=== PATIENT | female | born 1995 | race Hispanic/Latino ===

== ENCOUNTER 2024-02-14 05:57 | Emergency (ER) | payer BC ==
[2024-02-14] MEDS ORDERED: ONDANSETRON 4 MG/2 ML VIAL ONE (06:27)
[2024-02-14 06:31] LABS: Absolute Basophils 0.1 K/uL (0-0.5); Absolute Lymphocytes (CBC) 1.3 K/uL (0.7-4.9); Absolute Monocytes 0.6 K/uL (0.1-1.3); Absolute Neutrophil 10.6 K/uL (1.8-8.0); Basophils % 0.5 % (0-1.3); Eosinophils % 0.3 % (0-4.4); Hematocrit 39.4 % (36.0-45.0); Hemoglobin 12.9 g/dL (12.0-15.0); Lymphocytes % 10.2 % (15.3-44.8); MCH 26.8 pg (27.0-35.0); MCHC 32.7 g/dL (32.0-36.0); MCV 82.1 fL (80-100); MPV 8.5 fL (7.6-11.3); Monocytes % 4.5 % (3.3-12.3); Neutrophils % 84.5 % (41.7-73.7); Platelets 387 thou/uL (152-406); RBC Red Blood Cell Count 4.81 M/uL (3.86-4.86); Red Cell Distribution Width 14.2 % (12.1-15.2)
[2024-02-14 06:47] LABS: Albumin 3.6 g/dL (3.4-5.0); Albumin/Globulin Ratio 0.9 (1.1-1.8); Anion Gap 12.1 mEq/L (5.0-15.0); Bilirubin Total 0.5 mg/dL (0.2-1.0); Potassium 3.1 mEq/L (3.5-5.1); Protein, Total 7.6 g/dL (6.4-8.2)
[2024-02-14] MEDS ORDERED: NA CHLORIDE 0.9% 1,000 ML ONE (07:54)
--- NOTE | 2024-02-14 08:40 | EDPHYS ---
Physician Documentation [facility] Name: Brea Daugherty Age: 29 yrs Sex: Female : 1995 Arrival Date: 02/14/2024 Time: 05:57 Bed 8 Private MD: ED Physician Domingo Tellez HPI: 02/13 06:08 This 29 yrs old Female presents to ER via Unassigned with complaints of ms3 Nausea, Vomiting, Diarrhea. 06:08 29-year-old female with no past medical history presents to the emergency department ms3 for nausea vomiting and diarrhea that began at 2 AM. Patient's notes she has had fatigue since Wednesday. Patient denies any pain. She denies any alleviating or inciting factors.. 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 - Infectious Disease History:: Denies. - Social history:: Smoking status: Patient denies any tobacco usage or history of. ROS: 06:08 Constitutional: Negative for fever, and chills. Cardiovascular: Negative for chest ms3 pain, and palpitations. Respiratory: Negative for shortness of breath, cough, wheezing, and pleuritic chest pain, 06:08 MS/Extremity: Negative for injury and deformity, Skin: Negative for injury, rash, and discoloration, 06:08 Abdomen/GI: Positive for nausea, vomiting, and diarrhea, Negative for abdominal pain, Exam: 06:08 Constitutional: This is a well developed, well nourished patient who is awake, alert, ms3 and in no acute distress. Chest/axilla: Normal chest wall appearance and motion. Nontender with no deformity. Cardiovascular: Regular rate and rhythm with a normal S1 and S2. No gallops, murmurs, or rubs. Normal PMI, no JVD. No pulse deficits. Respiratory: Lungs have equal breath sounds bilaterally, clear to auscultation and percussion. No rales, rhonchi or wheezes noted. No increased work of breathing, no retractions or nasal flaring. Abdomen/GI: Soft, non-tender, with normal bowel sounds. No distension or tympany. No guarding or rebound. No evidence of tenderness throughout. Skin: Warm, dry with normal turgor. Normal color with no rashes, no lesions, and no evidence of cellulitis. MS/ Extremity: Pulses equal, no cyanosis. Neurovascular intact. Full, normal range of motion. Vital Signs: 06:08 BP 135 / 95; Pulse 77; Resp 15; Temp 98; Pulse Ox 97% ; Weight 58.06 kg; Height 5 ft. 2 vc1 in. ; Pain 10/10; 06:34 BP 139 / 93; Pulse 75; Resp 16; Pulse Ox 97% ; dd2 07:19 BP 153 / 99; Pulse 76; Resp 18; Pulse Ox 98% on R/A; ph 08:30 BP 137 / 89; Pulse 72; Resp 18; Temp 98; Pulse Ox 98% on R/A; ph 06:08 Body Mass Index 23.41 (58.06 kg, 157.48 cm) vc1 06:08 Pain Scale: Adult vc1 [place] Coma Score: 06:34 Eye Response: spontaneous(4). Motor Response: obeys commands(6). Verbal Response: dd2 oriented(5). Total: 15. MDM: 06:08 Medical Screening Exam initiated ms3 06:08 Differential diagnosis: Anemia Electrolyte abnormality versus acute kidney injury ms3 versus gastroenteritis. 06:58 Transition of care: After a detail discussion of the patient's case, care is ms3 transferred to Domingo Tellez MD. 08:30 Data reviewed: vital signs, nurses notes, lab test result(s). Consideration of rt Admission/Observation Escalation of care including admission/observation considered. Symptoms significant improving, lab work benign, leukocytosis likely secondary to demargination, patient has no focal areas of abdominal tenderness, stable for outpatient care with return precautions. Patient is p.o. tolerant prior to discharge.. I considered the following discharge prescriptions or medication management in the emergency department Medications were administered in the Emergency Department. See MAR. Test considered but Not performed: CT: Benign abdominal examination, CT scan indicated. Counseling: I had a detailed discussion with the patient and/or guardian regarding the historical points, exam findings, and any diagnostic results supporting the discharge/admit diagnosis, lab results, the need for outpatient follow up, to return to the emergency department if symptoms worsen or persist or if there are any questions or concerns that arise at home. Response to treatment: the patient's symptoms have markedly improved after treatment. 02/13 06:08 Order name: CBC with Diff; Complete Time: 07: ms3 02/13 06:08 Order name: CMP; Complete Time: 07: ms3 02/13 06:08 Order name: IV Saline Lock; Complete Time: ms3 02/13 06:08 Order name: Labs collected and sent; Complete Time: : ms3 Administered Medications: 06:29 Drug: Ondansetron IVP 4 mg IVP once; over 2 minutes Route: IVP; Site: right antecubital;dd2 06:44 Follow up: Response: No adverse reaction dd2 08:00 Drug: NS 0.9% IV 1000 ml IV at 1000 ml once; to be given as a bolus over 30 minutes ph Route: IV; Rate: 1000 ml; Site: right antecubital; 08:49 Follow up: Response: No adverse reaction; IV Status: Completed infusion; IV Intake: ph 1000ml Disposition Summary: 02/14/24 08:39 Discharge Ordered Notes: Location: Home rt Condition: Stable rt Diagnosis - Nausea with vomiting, unspecified rt - Diarrhea, unspecified rt Followup: ms3 - With: Ab Escalante DO - When: 2 - 3 days - Reason: Recheck today's complaints Discharge Instructions: - Discharge Summary Sheet ms3 - Food Choices to Help Relieve Diarrhea, Adult ms3 - Diarrhea, Adult ms3 - Nausea and Vomiting, Adult ms3 Forms: - Work release form hb - Medication Reconciliation Form rt - Antibiotic Education rt - Prescription Opioid Use rt - Patient Portal Instructions rt - Leadership Thank You Letter rt Prescriptions: - ondansetron 4 mg Oral Tablet,disintegrating - take 1 tablet ORAL route every 8 hours; 15 tablet; Refills: 0, Product ms3 Selection Permitted Signatures: Dispatcher [employer] Melinda Crain RN RN De Rouse DO DO ms3 Kala Art RN RN vc1 Domingo Tellez MD MD rt CARLOS FLORES RN RN dd2 Corrections: (The following items were deleted from the chart) 06:12 06:11 Allergies: Aspirin; vc1 vc1 06:12 06:11 PMHx: None; vc1 vc1
--- NOTE | 2024-02-14 08:40 | ER ---
Nurse's Notes [facility] Name: Brea Daugherty Age: 29 yrs Sex: Female : 1995 Arrival Date: 02/14/2024 Time: 05:57 Bed 8 Private MD: Diagnosis: Nausea with vomiting, unspecified;Diarrhea, unspecified Presentation: 02/13 06:08 Chief complaint: Patient states: I have been tired the last few days all I do is sleep. vc1 Today I started vomiting blood and diarrhea. Coronavirus screen: Client denies travel out of the [place] in the last 14 days. At this time, the client does not indicate any symptoms associated with coronavirus-19. Ebola Screen: Patient negative for fever greater than or equal to 101.5 degrees Fahrenheit, and additional compatible Ebola Virus Disease symptoms Patient denies exposure to infectious person. Patient denies travel to an Ebola-affected area in the 21 days before illness onset. No symptoms or risks identified at this time. Initial Sepsis Screen: Does the patient meet any 2 criteria? No. Patient's initial sepsis screen is negative. Does the patient have a suspected source of infection? No. Patient's initial sepsis screen is negative. Risk Assessment: Do you want to hurt yourself or someone else? Patient reports no desire to harm self or others. Onset of symptoms was February 14, 2024. 06:08 Method Of Arrival: Ambulatory vc1 06:08 Acuity: NUBIA 3 vc1 Triage Assessment: 06:12 General: Appears in no apparent distress. uncomfortable, ill, slender, well groomed, vc1 well developed, well nourished, Behavior is calm, cooperative, appropriate for age. Pain: Complains of pain in abdomen. EENT: No deficits noted. No signs and/or symptoms were reported regarding the EENT system. Neuro: Level of Consciousness is awake, alert, obeys commands, Oriented to person, place, time, situation, Appropriate for age. Cardiovascular: Capillary refill < 3 seconds Patient's skin is warm and dry. Respiratory:. 06:14 Respiratory: Reports trouble catching breath Onset: The symptoms/episode began/occurred vc1 at an unknown time. the patient reports symptoms have resolved. GI: Reports diarrhea, nausea, vomiting. : No deficits noted. No signs and/or symptoms were reported regarding the genitourinary system. Derm: Skin is intact, is healthy with good turgor, Skin is dry, Skin is normal, Skin temperature is warm. Musculoskeletal: Circulation, motion, and sensation intact. Range of motion: intact in all extremities. 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 - Infectious Disease History:: Denies. - Social history:: Smoking status: Patient denies any tobacco usage or history of. Screenin:12 [facility] ED Fall Risk Assessment (Adult) History of falling in the last 3 months, vc1 including since admission No falls in past 3 months (0 pts) Confusion or Disorientation No (0 pts) Intoxicated or Sedated No (0 pts) Impaired Gait No (0 pts) Mobility Assist Device Used No (0 pt) Altered Elimination No (0 pt) Score/Fall Risk Level 0 - 2 = Low Risk Oriented to surroundings, Maintained a safe environment, Educated pt \T\ family on fall prevention, incl call for assistance when getting out of bed. Abuse screen: Denies threats or abuse. Nutritional screening: No deficits noted. Tuberculosis screening: No symptoms or risk factors identified. Assessment: 06:34 Reassessment: SEE TRIAGE FOR FULL ASSESSENT. dd2 07:19 Reassessment: Patient appears in no apparent distress at this time. Patient and/or ph family updated on plan of care and expected duration. Pain level reassessed. Patient is alert, oriented x 3, equal unlabored respirations, skin warm/dry/pink. 08:48 Reassessment: Patient appears in no apparent distress at this time. Patient and/or ph family updated on plan of care and expected duration. Pain level reassessed. Patient is alert, oriented x 3, equal unlabored respirations, skin warm/dry/pink. Vital Signs: 06:08 BP 135 / 95; Pulse 77; Resp 15; Temp 98; Pulse Ox 97% ; Weight 58.06 kg; Height 5 ft. 2 vc1 in. ; Pain 10/10; 06:34 BP 139 / 93; Pulse 75; Resp 16; Pulse Ox 97% ; dd2 07:19 BP 153 / 99; Pulse 76; Resp 18; Pulse Ox 98% on R/A; ph 08:30 BP 137 / 89; Pulse 72; Resp 18; Temp 98; Pulse Ox 98% on R/A; ph 06:08 Body Mass Index 23.41 (58.06 kg, 157.48 cm) vc1 06:08 Pain Scale: Adult vc1 [place] Coma Score: 06:34 Eye Response: spontaneous(4). Motor Response: obeys commands(6). Verbal Response: dd2 oriented(5). Total: 15. ED Course: 05:59 Patient arrived in ED. [id number] 06:00 De Blackwell DO is Attending Physician. ms3 06:11 Triage completed. vc1 06:12 Arm band placed on right wrist. vc1 06:15 Patient has correct armband on for positive identification. Bed in low position. Call vc1 light in reach. Pulse ox on. NIBP on. 06:23 Initial lab(s) drawn, by me, sent to lab. Inserted saline lock: 20 gauge in right ty antecubital area, using aseptic technique. Blood collected. Flushed with 10 mL NS. 06:25 CARLOS FLORES, RN is Primary Nurse. dd2 06:34 Provided Education on: MEDICATION, LABS, CALL LIGHT. Door closed. Noise minimized. Warm dd2 blanket given. Verbal reassurance given. 06:34 No provider procedures requiring assistance completed. dd2 06:59 Attending Physician role handed off by De Blackwell DO rt 06:59 Domingo Tellez MD is Attending Physician. rt 08:23 Primary Nurse role handed off by CARLOS FLORES, RN bd 08:39 Ab Escalante DO is Referral Physician. rt 08:47 Melinda Gurrola, RN is Primary Nurse. ph 08:48 IV discontinued, intact, bleeding controlled, No redness/swelling at site. Pressure ph dressing applied. Administered Medications: 06:29 Drug: Ondansetron IVP 4 mg IVP once; over 2 minutes Route: IVP; Site: right antecubital;dd2 06:44 Follow up: Response: No adverse reaction dd2 08:00 Drug: NS 0.9% IV 1000 ml IV at 1000 ml once; to be given as a bolus over 30 minutes ph Route: IV; Rate: 1000 ml; Site: right antecubital; 08:49 Follow up: Response: No adverse reaction; IV Status: Completed infusion; IV Intake: ph 1000ml Medication: 06:12 VIS not applicable for this client. vc1 Intake: 08:49 IV: 1000ml; Total: 1000ml. ph Outcome: 08:39 Discharge ordered by MD. rt 08:48 Discharged to home ambulatory, with family, ph 08:48 Condition: good 08:48 Discharge instructions given to patient, Instructed on discharge instructions, follow up and referral plans. medication usage, Demonstrated understanding of instructions, follow-up care, medications, Prescriptions given X 1, 09:27 Patient left the ED. ph Signatures: Karuna Yancey Patricia RN RN De Blackwell DO DO ms3 Loida Tripp [id number] Kala Art RN RN vc1 Domingo Tellez MD MD rt Yandell, Tylor ty DAVIS, DIANA, RN RN dd2 Corrections: (The following items were deleted from the chart) 06:12 06:11 Allergies: Aspirin; vc1 vc1 06:12 06:11 PMHx: None; vc1 vc1
[2024-02-14 11:01] VITALS: TEMP 98
[2024-02-14 11:17] VITALS: O2SAT 98
[2024-02-14 11:18] VITALS: BP 137/89
== END 2024-02-14 09:27 | disposition home or self-care (01) ==
LOC: ER 05:57
DX: R11.2 Nausea with vomiting, unspecified (principal); R19.7 Diarrhea, unspecified; Z28.310 Unvaccinated for COVID-19
CPT/HCPCS: 96361; 85025; 36415; 80053; 96374; 99284; J2405; J7030